=== PATIENT | female | born 1995 | race Caucasian/White ===

== ENCOUNTER 2016-07-16 13:42 | Emergency (ER) | payer OTHER ==
[2016-07-16 13:46] VITALS: TEMP 98.1
--- NOTE | 2016-07-16 13:59 | EDPHY ---
H & P Stated Complaint: L flank pain Time Seen by Provider: 07/16/16 13:47 HPI/ROS: CHIEF COMPLAINT: UTI symptoms, left flank pain HISTORY OF PRESENT ILLNESS: 20-year-old female presents emergency department complaining of left flank pain and nausea. Patient started 1 week ago with urinary frequency, urgency and dysuria, 5 days ago this improved and she started with left flank pain that has progressed. Patient has parents better physicians and started her on Keflex yesterday. She took 2 doses of 500 mg Keflex. Patient reports this made her feel better, she woke up this morning continued flank pain and so presented to the emergency department. Patient was admitted to the hospital 8 months ago for pyelonephritis and sepsis. At that time she had fevers and felt much worse than she does today. Patient has not vomited, she denies fevers. Patient reports suprapubic abdominal tenderness and intermittent spasms. REVIEW OF SYSTEMS: A comprehensive 10 point review of systems is otherwise negative aside from elements mentioned in the history of present illness. Source: Patient Exam Limitations: No limitations - Personal History LMP (Females 10-55): 1-7 Days Ago Current Tetanus/Diphtheria Vaccine: Yes Current Tetanus Diphtheria and Acellular Pertussis (TDAP): Yes - Medical/Surgical History Hx Asthma: No Hx Chronic Respiratory Disease: No Hx Diabetes: No Hx Cardiac Disease: No Hx Renal Disease: No Hx Cirrhosis: No Hx Alcoholism: No Hx HIV/AIDS: No Hx Splenectomy or Spleen Trauma: No Other PMH: UTI, ortho - Social History Smoking Status: Never smoked - Physical Exam Exam: Physical Exam Gen: Alert and Oriented, NAD HEENT: PERRL, moist mucous membranes NECK: no meningismus CV: regular rate and regular rhythm PULM: CTAB, no wheezes ABDOMEN: soft, suprapubic tenderness to palpation, BS present BACK: Left CVA tenderness NEURO: Neurologically grossly intact EXTREMITIES: normal appearing SKIN: no rash or break in skin on exposed skin PSYCH: answers questions appropriately. Constitutional: Initial Vital Signs Temperature (C) 36.7 C 07/16/16 13:44 Heart Rate 100 07/16/16 13:44 Respiratory Rate 14 07/16/16 13:44 Blood Pressure 117/71 07/16/16 13:44 O2 Sat (%) 94 07/16/16 13:44 O2 Delivery Mode Room Air Allergies/Adverse Reactions: No Known Allergies Allergy (Unverified 11/07/15 17:23) Home Medications: Medication Instructions Recorded Acetaminophen [Tylenol 325mg (*)] 325 mg PO DAILY PRN 11/07/15 Herbals/Supplements -Info Only 1 ea PO DAILY 11/07/15 Ibuprofen [Motrin (*)] 200 mg PO DAILY PRN 11/07/15 Multivitamins [Multivitamin (*)] 1 each PO DAILY 11/07/15 Norgestimate-Ethinyl Estradiol 1 each PO DAILY 11/07/15 [Sprintec 28 Day Tablet] Ondansetron Odt [Zofran Odt 4 mg 4 mg PO Q4 PRN #30 tab 11/11/15 (*)] levOFLOXACIN [levAQUIN (*)] 750 mg PO DAILY #9 tab 11/11/15 Medical Decision Making ED Course/Re-evaluation: 20-year-old female presents emergency department with UTI and pyelonephritis symptoms. Patient is afebrile, tolerating food fluids a normal blood pressure heart rate. Patient's urinalysis is normal though she started on Keflex yesterday. Urine culture has been ordered. Urine culture reviewed from her previous pyelonephritis in October which was sensitive to cephalosporins. Patient is given an IV dose of Rocephin and will continue her Keflex 500 mg twice a day for 7 days. I-STAT shows normal renal function. Patient had a negative test. Patient is discharged home, she is given strict return precautions for any worsening symptoms, new symptoms or concerns. Differential Diagnosis: The differential diagnosis for the patient's flank pain included but was not limited to musculoskeletal causes, kidney stone, pyelonephritis, shingles, diverticulitis, appendicitis, and aortic aneurysm. - Data Points Laboratory Results: 07/16/16 07/16/16 13:45 13:45 Urine Color YELLOW Urine Appearance CLEAR Urine pH 7.0 (5.0-7.5) Ur Specific [place] 1.010 (1.002-1.030) Urine Protein NEGATIVE (NEGATIVE) Urine Ketones NEGATIVE (NEGATIVE) Urine Blood NEGATIVE (NEGATIVE) Urine Nitrate NEGATIVE (NEGATIVE) Urine Bilirubin NEGATIVE (NEGATIVE) Urine Urobilinogen NEGATIVE EU EU (0.2-1.0) Ur Leukocyte Esterase NEGATIVE (NEGATIVE) Urine Glucose NEGATIVE (NEGATIVE) Urine Test NEGATIVE Departure - Departure Disposition: Home, Routine, Self-Care Clinical Impression: Pyelonephritis Condition: Good Instructions: Kidney Infection (ED) Additional Instructions: Take 500 mg of Keflex twice daily for 7 days, drink plenty of fluids, return to the emergency department for any worsening symptoms, fevers, new symptoms or concerns. Referrals: Holly Suazo MD [[facility] [place] Primary Care Provider] - As per Instructions
[2016-07-16 14:03] LABS: COLOR YELLOW; LEUKOCYTE ESTERASE,URINE NEGATIVE (NEGATIVE); NITRITE,URINE NEGATIVE (NEGATIVE)
[2016-07-16] MEDS ORDERED: NS 1,000 ML IV ONE (14:13)
[2016-07-16 15:14] VITALS: BP 111/72; PULSE 72; RESP 16; O2SAT 96
== END 2016-07-16 15:25 | disposition home or self-care (01) ==
DX: N12 Tubulo-interstitial nephritis, not specified as acute or chronic (principal); B96.89 Other specified bacterial agents as the cause of diseases classified elsewhere
CPT/HCPCS: 82947-QW; 96365; J0696